=== PATIENT | female | born 1965 | race Caucasian/White ===

== ENCOUNTER 2016-06-03 05:42 | Emergency (ER) | payer OTHER ==
--- NOTE | ~2016-06-03 | EKG ---
PATIENT: MIN MENDEZ UNIT #: [id number] Ventricular Rate: 83 BPM Atrial Rate: 83 BPM P-R Interval: 144 ms QRS Duration: 88 ms Q-T Interval: 386 ms QTC Calculation(Bezet): 453 ms P [place]: 81 degrees Calculated R [place]: 54 degrees Calculated T [place]: 60 degrees Diagnosis Line: Normal sinus rhythm with sinus arrhythmia Diagnosis Line: Normal ECG Diagnosis Line: No previous ECGs available Diagnosis Line: Confirmed by KIMBERLY TANG MD ([id number]) on 06/04/2016 Diagnosis Line: 11:15:40 AM INTERPRETING MD: KITTY MORRISSEY
[~2016-06-03 05:42] MED LIST: BACTRIM DS TABL1 TA1 PO; CIPRO PO; LORTAB 5/500 TA1 TA1 PO; PYRIDIUM100 MG PO
[2016-06-03 06:20] LABS: POC - CKMB 1.2 ng/mL (0.0-7.9); POC - TROPONIN <0.05 ng/mL (<=0.05)
[2016-06-03 06:44] LABS: URINE SOURCE CLEAN CATCH
[2016-06-03 06:47] LABS: BASOPHIL% 0.5 % (0-2.5); EOSINOPHIL% 0.6 % (0.0-7.0); HEMATOCRIT 43.3 % (35.0-45.0); HEMOGLOBIN 14.5 gm/dL (12.0-16.0); LYMPHOCYTE% 30.6 % (17.0-45.0); MEAN CELL VOLUME 95.3 FL (83-96); MEAN CORPUSCULAR HEMOGLOBIN 31.9 PG (28-34); MEAN CORPUSCULAR HGB CONC 33.4 g/dL (30-36); MEAN PLATELET VOLUME 9.3 FL (6.5-11.5); MONOCYTE# 0.4 X10e3 (0-1.0); MONOCYTE% 6.5 % (3.0-12.0); NEUTROPHIL# 3.9 X10e3 (1.5-7.1); NEUTROPHIL% 61.8 % (40-75); PLATELET COUNT 177 X10e3 (140-420); RED BLOOD COUNT 4.55 X10e (3.90-5.30); RED CELL DISTRIBUTION WIDTH 13.3 % (11.0-15.5); WHITE BLOOD COUNT 6.4 X10e3 (4.0-10.5)
[2016-06-03 06:49] LABS: DIFF IND NO; URINE APPEARANCE CLEAR; URINE BILIRUBIN NEG (NEG); URINE BLOOD NEG (NEG); URINE COLOR YELLOW; URINE GLUCOSE NEG (NEG); URINE KETONE NEG (NEG); URINE LEUKOCYTE ESTERASE 2+ (NEG); URINE NITRATE NEG (NEG); URINE PROTEIN NEG (NEG); URINE SPECIFIC GRAVITY 1.007 (1.003-1.035); URINE UROBILINOGEN 0.2 MG/DL (NEG)
[2016-06-03 06:53] LABS: U HYALINE CASTS AUWI 0-2 /[LPF]; URBCS1 AUWI 0-2 /[HPF] (0-2); URINE BACTERIA AUWI NEG (NEGATIVE); URINE SQUAMOUS EPITHELIAL CELL OCC /[HPF]
[2016-06-03 07:16] LABS: BLOOD UREA NITROGEN 10 mg/dL (9-23); BUN/CREATININE RATIO 14.28; CALCIUM SERUM 9.3 mg/dL (8.4-10.2); CARBON DIOXIDE 27 mmol/L (22-31); CHLORIDE 100 mmol/L (100-111); CREATININE SERUM 0.7 mg/dL (0.6-1.4); GLOM FILT RATE Estimated ABOVE60 mL/min (>60); GLUCOSE FASTING 124 mg/dL (70-110); POTASSIUM 3.3 mmol/L (3.5-5.1); SODIUM 139 mmol/L (135-145)
== END 2016-06-03 08:22 | disposition home or self-care (01) ==
LOC: CED 05:42
PROVIDERS: Emergency Medicine
DX: F32.9 Major depressive disorder, single episode, unspecified (principal); F41.1 Generalized anxiety disorder; G47.00 Insomnia, unspecified; I10 Essential (primary) hypertension
CPT/HCPCS: 36415; 80048; 81003; 82553; 84484; 85025; 93005; 99283

== ENCOUNTER 2016-10-19 05:26 | Inpatient (IN) | payer OTHER ==
[~2016-10-19] VITALS: Ht 165.1 cm; Wt 47.2 kg
--- NOTE | ~2016-10-19 | CT4 ---
[facility] A Service of [facility] RADIOLOGY TEXT RESULTS PATIENT: MIN MENDEZ LOCATION: C2A : 61 UNIT #: [id number] AGE: [address]: Eduardo Amezquita MD SEX: F ORDER DR: [id number] [facility] [address] [place], [place] [address] [id number] E MR#: [id number] Acc #: [id number] NAME: MIN MENDEZ : 1965 SEX: F STUDY DATE/TIME: 10/19/2016 8:35 UNIT: CFTX ROOM: STUDY DESCRIPTION: CT Abd and Pelv Wo Cont Attending Physician: Tyler Lofton M.D. Ordering Physician: Tyler Lofton M.D. Primary Care Physician: Primary Care Physician No MEDICAL IMAGING REPORT This report is preliminary unless electronic signature is present EXAM CT abdomen and pelvis without contrast. HISTORY Left-sided flank pain since 04:[address] exam was performed with one or more of the following radiation dose reduction techniques: automatic exposure control, adjustment of mA and/or kV according to patient size, and iterative reconstruction. FINDINGS Axial images performed through the abdomen and pelvis without contrast. Multiplanar reconstructed images reviewed at a workstation. Abdomen: Lung bases remarkable for granulomatous lesions right lower lobe. The liver and spleen also demonstrate a few granulomas. The gallbladder unremarkable. Pancreas and adrenal glands appear normal. There is an 11 mm stone in the proximal left ureter with moderate left-sided hydronephrosis. Findings compatible with acute obstruction. The right kidney unremarkable. GI tract unremarkable. Pelvis: Bladder and adnexa unremarkable. The osseous structures and soft tissues appear normal. Sutures are noted along the lower anterior abdomen consistent with the patient's history of prior . IMPRESSION 1. Large 11 mm proximal left ureteral stone with moderate left-sided hydronephrosis. 2. Old granulomas disease. [facility] A Service of [facility] RADIOLOGY TEXT RESULTS PATIENT: MIN MENDEZ LOCATION: C2A 216 : 61 UNIT #: [id number] AGE: [address]: Eduardo Amezquita MD SEX: F ORDER DR: Dictated by... Estrella Herman M.D. THIS IS AN ELECTRONICALLY VERIFIED REPORT Estrella Herman M.D. at 10/20/2016 9:02 AM SHERI/carolyn TD: 10/19/2016 13:11 JOB #: [id number] MEDICAL IMAGING REPORT Page 1 of 1 COPY
--- NOTE | ~2016-10-19 | OR ---
Unit #: [id number] #: [id number] Patient: MIN MENDEZ [id number] [address] [address] [id number] I MR#: [id number] NAME: MIN MENDEZ ROOM: 216 Date of Procedure: 10/19/2016 Admission Date: 10/19/2016 Surgeon: Eduardo Amezquita M.D. : 1965 Attending Physician: Eduardo Amezquita M.D. OPERATIVE REPORT PREOPERATIVE DIAGNOSIS Left ureteral stone, suspected urinary tract infection. POSTOPERATIVE DIAGNOSIS Left ureteral stone, suspected urinary tract infection. PROCEDURES PERFORMED Cystoscopy, left retrograde pyelogram, and stent placement. ANESTHESIA General. DESCRIPTION OF PROCEDURE After informed consent, she was taken to the operating room, placed under general anesthetic, and positioned lithotomy. Her vagina and perineum were prepped and draped in the usual sterile fashion. Cystoscopy was performed, revealing a normal urethra and bladder. There were no tumors. No stones or diverticula. The entire bladder was inspected. Retrograde pyelogram performed on the left, showing a stone in the left proximal ureter. It was visible on fluoroscopy. The wire was placed under fluoroscopic guidance into the left ureter up into the collecting system. A 5 x 24 stent was placed with the tether removed into the left ureter. There was a good coil in the bladder and collecting system. The patient will be taken to the Recovery, be admitted to the floor, eventually have outpatient treatment of her stone likely with shockwave lithotripsy. Dictated by... Luz Ortega/tequila TD: 10/20/2016 07:07 JOB #: [id number] Unit #: [id number] #: [id number] Patient: MIN MENDEZ OPERATIVE REPORT Page 1 of 1 X Eduardo Amezquita MD X PROCEDURE OPERATIVE NOTE
--- NOTE | ~2016-10-19 | CR270 ---
[facility] A Service of [facility] RADIOLOGY TEXT RESULTS PATIENT: MIN MENDEZ LOCATION: C2A 216-01 : 61 UNIT #: [id number] AGE: [address]: Eduardo Amezquita MD SEX: F ORDER DR: [id number] [place] [id number] [facility]. [place], [place] [address] [id number] I MR#: [id number] Acc #: [id number] NAME: MIN MENDEZ : 1965 SEX: F STUDY DATE/TIME: 10/19/2016 13:30 UNIT: A ROOM: 216 STUDY DESCRIPTION: CR Urethrocystography Ret Attending Physician: Eduardo Amezquita M.D. Ordering Physician: Eduardo Amezquita M.D. Primary Care Physician: Primary Care Physician No MEDICAL IMAGING REPORT This report is preliminary unless electronic signature is present EXAM Cysto ureteroscopy INDICATION Left kidney stone. The patient had CT scan today which showed an obstructing stone seen within the proximal left ureter, with associated left-sided hydronephrosis. FINDINGS Single fluoroscopic image from the operating room is submitted for interpretation. These show a normal-caliber left ureter with no opacification of the proximal ureter are seen. Please see Dr. Amezquita's report for full description of the procedure and findings. Total fluoroscopy time was 0.27 minutes and again a single fluoroscopic image was obtained. IMPRESSION Intraoperative fluoroscopy is noted above. Please see Dr. Amezquita's report for description of procedure and findings. Dictated by... Wendi Jauregui M.D. THIS IS AN ELECTRONICALLY VERIFIED REPORT Wendi Jauregui M.D. at 10/20/2016 5:33 PM LORETTA/carolyn TD: 10/20/2016 07:51 JOB #: [id number] MEDICAL IMAGING REPORT Page 1 of 1 COPY
[2016-10-19 05:47] LABS: URINE SOURCE CLEAN CATCH
[2016-10-19 05:52] LABS: URINE APPEARANCE CLOUDY; URINE BILIRUBIN NEG (NEG); URINE BLOOD 1+ (NEG); URINE COLOR YELLOW; URINE GLUCOSE NEG (NEG); URINE KETONE NEG (NEG); URINE LEUKOCYTE ESTERASE 3+ (NEG); URINE NITRATE NEG (NEG); URINE PROTEIN NEG (NEG); URINE SPECIFIC GRAVITY 1.019 (1.003-1.035); URINE UROBILINOGEN 0.2 MG/DL (NEG)
[2016-10-19 05:54] LABS: CULTURE INDICATED? YES; URINE BACTERIA AUWI 1+ (NEGATIVE); URINE SQUAMOUS EPITHELIAL CELL OCC /[HPF]; UWBCS1 AUWI 100-200 (0-5)
[2016-10-19 07:39] LABS: BASOPHIL% 0.2 % (0-2.5); EOSINOPHIL% 0.1 % (0.0-7.0); HEMATOCRIT 41.9 % (35.0-45.0); HEMOGLOBIN 13.6 gm/dL (12.0-16.0); LYMPHOCYTE# 1.7 X10e3 (1.0-3.5); LYMPHOCYTE% 12.9 % (17.0-45.0); MEAN CELL VOLUME 96.6 FL (83-96); MEAN CORPUSCULAR HEMOGLOBIN 31.4 PG (28-34); MEAN CORPUSCULAR HGB CONC 32.5 g/dL (30-36); MONOCYTE# 0.7 X10e3 (0-1.0); MONOCYTE% 5.4 % (3.0-12.0); NEUTROPHIL# 10.5 X10e3 (1.5-7.1); NEUTROPHIL% 81.4 % (40-75); PLATELET COUNT 202 X10e3 (140-420); RED BLOOD COUNT 4.34 X10e (3.90-5.30); RED CELL DISTRIBUTION WIDTH 13.5 % (11.0-15.5); WHITE BLOOD COUNT 12.9 X10e3 (4.0-10.5)
[2016-10-19 07:40] LABS: DIFF IND NO
[2016-10-19 08:09] LABS: BILIRUBIN,TOTAL 0.3 mg/dL (0.2-2.0); BUN/CREATININE RATIO 21.42; CALCIUM SERUM 9.1 mg/dL (8.4-10.2); CREATININE SERUM 0.7 mg/dL (0.6-1.4); GLOM FILT RATE Estimated 98.9 mL/min (>60); POTASSIUM 3.6 mmol/L (3.5-5.1); PROTEIN TOTAL SERUM 6.9 g/dL (6.0-8.3)
[2016-10-19] MEDS ORDERED: LISINOPRIL PO (09:33)
[2016-10-19] MEDS ORDERED: ALENDRONATE SOD70 M1 PO (09:35)
[2016-10-19] MEDS ORDERED: PATIENT'S PHARMACY (09:36)
[2016-10-19] MEDS ORDERED: LOVASTATIN10 MG PO (09:36)
[2016-10-20] MEDS ORDERED: BACTRIM DS TAB1 EACH PO (08:26)
[2016-10-20] MEDS ORDERED: HYDROCODON-ACE1 EAC7 PO (08:28)
== END 2016-10-20 09:41 | disposition home or self-care (01) | DRG 694 ==
LOC: CED 05:26 → CFTX 07:06 → CED 07:06 → C2A 11:00 → CFTX 18:41 → C2A 10-20 09:41
PROVIDERS: Emergency Medicine; Urology
PROC: BT1FYZZ Fluoroscopy of Left Kidney, Ureter and Bladder using Other Contrast (ICD-10-PCS; 2016-10-19)
PROC: 0T778DZ Dilation of Left Ureter with Intraluminal Device, Via Natural or Artificial Opening Endoscopic (ICD-10-PCS; principal; 2016-10-19 12:30)
DX: N20.1 Calculus of ureter (principal); I10 Essential (primary) hypertension; N39.0 Urinary tract infection, site not specified; E78.5 Hyperlipidemia, unspecified
CPT/HCPCS: 36415; 74176; 74450; 80053; 81003; 83690; 85025; 87086; 96374; 96375; 99285; C2617; J0696; J1885; J2250; J2270; J2405; J3010

== ENCOUNTER → 2016-11-10 | Outpatient (CLI) | payer OTHER ==
[~2016-11-10] MED LIST changes: +ALENDRONATE SOD70 M1 PO; +BACTRIM DS TAB1 EACH PO; +HYDROCODON-ACE1 EAC7 PO; +LISINOPRIL PO; +LOVASTATIN10 MG PO; +PATIENT'S PHARMACY
--- NOTE | ~2016-11-10 | CR7 ---
[facility] A Service of [facility] RADIOLOGY TEXT RESULTS PATIENT: MIN MAYS LOCATION: [facility] : 61 UNIT #: [id number] AGE: [address]: Eduardo Amezquita MD SEX: F ORDER DR: [id number] [facility] [address]. [place], [place] [address] [id number] O MR#: [id number] Acc #: [id number] NAME: MIN MAYS : 1965 SEX: F STUDY DATE/TIME: 11/10/2016 11:21 UNIT: [facility] ROOM: STUDY DESCRIPTION: CR Abdomen Single AP View Attending Physician: Eduardo Amezquita M.D. Referring Physician: Eduardo Amezquita M.D. Ordering Physician: Eduardo Amezquita M.D. Primary Care Physician: Mike Herbert M.D. MEDICAL IMAGING REPORT This report is preliminary unless electronic signature is present EXAM KUB 11/10 INDICATIONS Left side kidney stones for 3 weeks. History of stent placement. TECHNIQUE Supine views of the abdomen and pelvis are compared with CT abdomen and pelvis 10/19/2016. FINDINGS There has been interval placement of a left side double-J stent. This appears in good position. No definite stones are seen along the course of the stent. Bowel gas pattern is normal. Numerous calcifications in the pelvis are felt to represent phleboliths. IMPRESSION Well-positioned left side ureteral stent. No definite stone seen along the course of the stent. Normal gas pattern. Dictated by... Akil Jenkins Jr., M.D. THIS IS AN ELECTRONICALLY VERIFIED REPORT Akil Jenkins Jr., M.D. at 11/11/2016 8:49 AM RLK/zain TD: 11/10/2016 22:24 JOB #: [id number] MEDICAL IMAGING REPORT [facility] A Service of [facility] RADIOLOGY TEXT RESULTS PATIENT: MIN MAYS LOCATION: [facility] #: [id number] : [birth year] UNIT #: [id number] AGE: [address]: Eduardo Amezquita MD SEX: F ORDER DR: Page 1 of 1 COPY
== END | disposition home or self-care (01) ==
LOC: CLAB 11:06
DX: N20.0 Calculus of kidney (principal); Z96.0 Presence of urogenital implants
CPT/HCPCS: 74000